=== PATIENT | female | born 1960 | race African-American/Black ===

== ENCOUNTER 2018-10-05 10:24 | Emergency (ER) | payer MEDICAID ==
[~2018-10-05] VITALS: Ht 172.7 cm; Wt 73.0 kg
[~2018-10-05 10:24] MED LIST: ASPIRIN; LISINOPRIL; NITROGLYCERIN; PRAV40TA PO
[2018-10-05] MEDS ORDERED: METF-414 PO (10:35)
[2018-10-05 13:10] LABS: BASOPHILS % 1.5 % (0.0-2.0); HEMATOCRIT. 39.1 % (36.0-48.0); LYMPHOCYTES % 26.7 % (20.0-50.0); MEAN CORPUSCULAR HEMOGLOBIN 29.1 pg (28.0-32.0); MEAN CORPUSCULAR VOLUME 87.5 fL (81.0-99.0); MEAN PLATELET VOLUME 8.6 fl (7.4-10.4); MONOCYTES % 6.6 % (2.0-8.0); NEUTROPHILS % 64.2 % (40.0-76.0); PLATELET 331 x1000/uL (130-400); RED BLOOD CELL COUNT 4.46 mill/uL (4.2-5.4); RED CELL DISTRIBUTION WIDTH 15.2 % (11.6-14.6)
[2018-10-05 13:16] LABS: CHLORIDE 108 mEq/L (98-107)
[2018-10-05 13:21] LABS: ETHANOL BLOOD < 10 mg/dL
[2018-10-05 13:40] LABS: *AMPHETAMINES SCREEN URINE NEGATIVE (NEGATIVE); *BARBITURATES SCREEN URINE NEGATIVE (NEGATIVE); *BENZODIAZEPINES SCREEN URINE NEGATIVE (NEGATIVE); *COCAINE SCREEN URINE NEGATIVE (NEGATIVE); METHADONE URINE SCREEN NEGATIVE (NEGATIVE); OPIATES URINE SCREEN NEGATIVE (NEGATIVE)
[2018-10-05 13:41] LABS: CANNABINOID URINE SCREEN PRESUMTIVE POSITIVE (NEGATIVE); PHENCYCLIDINE URINE SCREEN NEGATIVE (NEGATIVE)
[2018-10-05] MEDS ORDERED: ASPIRIN 325MG EC TABLET PO ONE (14:15)
[2018-10-05] MEDS ORDERED: ACETAMINOPHEN 325MG TABLET PO ONE (19:00)
[2018-10-05 19:32] VITALS: BP 147/79
== END 2018-10-05 20:20 | disposition short-term general hospital (02) ==
LOC: ER 10:51 → CANBEDREQ 15:05 → ER 20:20
DX: R07.9 Chest pain, unspecified (principal); E11.9 Type 2 diabetes mellitus without complications; I10 Essential (primary) hypertension; Z88.0 Allergy status to penicillin; Z87.891 Personal history of nicotine dependence
CPT/HCPCS: 36415; 71045; 80305; 80320; 83880; 84484; 93005; 99285; G0480

== ENCOUNTER 2023-12-26 14:19 | Emergency (ER) | payer SELFPAY ==
[~2023-12-26] VITALS: Ht 167.6 cm; Wt 59.0 kg
[~2023-12-26 14:19] MED LIST changes: +METF-414 PO
[2023-12-26 14:26] VITALS: BP 105/65; TEMP 97.9
[2023-12-26] MEDS ORDERED: albuterol (14:26)
[2023-12-26] MEDS: DEXAMETHASONE 6MG TABLET PO NR (14:45)
[2023-12-26] MEDS ORDERED: DEXAMETHASONE 1MG TABLET PO ONE (14:45)
[2023-12-26] MEDS ORDERED: ONDANSETRON HCL 4MG/2ML INJ IV ONE (14:45)
[2023-12-26] MEDS: ONDANSETRON 4MG ODT PO ONE (14:45)
[2023-12-26] MEDS: DEXAMETHASONE 4MG TABLET PO NR (14:45)
[2023-12-26 15:15] VITALS: PULSE 66; RESP 22; O2SAT 100
[2023-12-26] MEDS: IPRATROPIUM BROMIDE (0.02%) 0.5MG/2.5ML NEB HHN STA (15:15)
[2023-12-26] MEDS: ALBUTEROL (0.083%) 2.5MG/3ML NEB HHN SCH (15:15)
[2023-12-26 15:48] LABS: BASOPHILS % 0.8 % (0.0-2.0); EOSINOPHILS % 0.4 % (0.0-5.0); HEMATOCRIT. 36.9 % (36.0-48.0); HEMOGLOBIN. 12.3 g/dL (12.0-16.0); LYMPHOCYTES % 37.5 % (20.0-50.0); MEAN CORPUSCULAR HEMOGLOBIN 28.7 pg (28.0-32.0); MEAN CORPUSCULAR HGB CONC 33.5 g/dL (31.0-37.0); MEAN CORPUSCULAR VOLUME 85.9 fL (81.0-99.0); MEAN PLATELET VOLUME 7.9 fl (7.4-10.4); MONOCYTES % 9.5 % (2.0-8.0); NEUTROPHILS % 51.8 % (40.0-76.0); PLATELET 305 x1000/uL (130-400); RED BLOOD CELL COUNT 4.29 mill/uL (4.2-5.4); RED CELL DISTRIBUTION WIDTH 15.4 % (11.6-14.6); WHITE BLOOD COUNT 5.1 x1000/uL (4.5-11.0)
[2023-12-26 15:57] LABS: CARBON DIOXIDE 24 mEq/L (21-32); CHLORIDE 106 mEq/L (98-107); SODIUM 139 mEq/L (136-145)
[2023-12-26 15:58] LABS: CALCIUM 9.5 mg/dL (8.7-10.4)
[2023-12-26 16:03] LABS: GLUCOSE 109 mg/dL (70-105); POTASSIUM 2.7 mEq/L (3.5-5.1); UREA NITROGEN BLOOD 8 mg/dL (9-23)
[2023-12-26 16:04] LABS: TROPONIN I HIGH SENSITIVITY < 4 ng/L (3.0-34)
[2023-12-26 16:05] LABS: ALANINE AMINOTRANSFERASE 31 IU/L (10-49); ALBUMIN 4.5 g/dL (3.2-4.8); ASPARTATE AMINOTRANSFERASE 33 IU/L (<34); BILIRUBIN DIRECT 0.2 mg/dL (<=3.0); BILIRUBIN TOTAL 0.5 mg/dL (0.1-1.0); PROTEIN TOTAL 7.4 g/dL (6.0-8.3)
[2023-12-26] MEDS ORDERED: POTASSIUM CHLORIDE 20MEQ/PACKET PO ONE (19:15)
[2023-12-26] MEDS ORDERED: BENZ100C86 MT (19:58)
== END 2023-12-26 19:35 | disposition left against medical advice (07) ==
LOC: ER 14:19
DX: R06.02 Shortness of breath (principal); E11.65 Type 2 diabetes mellitus with hyperglycemia; I10 Essential (primary) hypertension; F12.90 Cannabis use, unspecified, uncomplicated; E78.00 Pure hypercholesterolemia, unspecified; J45.909 Unspecified asthma, uncomplicated; Z88.0 Allergy status to penicillin
CPT/HCPCS: 80076; 80048; 85025; 84484; 36415; 71045; 93005; 94644; 99285; J8540; Q0162; Z7610 ×3